=== PATIENT | male | born 1980 | race Caucasian/White ===

== ENCOUNTER 2016-11-21 12:51 | Emergency (ER) | payer BC ==
[~2016-11-21] VITALS: Ht 172.7 cm; Wt 67.3 kg
[~2016-11-21 12:51] MED LIST: BACTRIM DS 8001 TAB PO; CLEOCIN HCL300 MG PO; DOXYCYCLINE 10100 MG PO; NO HOME MEDICATIONS; NORCO 325 MG-101 TAB PO; NORCO 325 MG-51 TAB PO; PERCOCET 325 MG1 TA2 PO
[2016-11-21 12:52] VITALS: BP 113/73; PULSE 85; TEMP 98.4
== END 2016-11-21 14:16 | disposition home or self-care (01) ==
LOC: COL.ER 12:51
DX: S09.8XXA Other specified injuries of head, initial encounter (principal); S00.81XA Abrasion of other part of head, initial encounter; S63.501A Unspecified sprain of right wrist, initial encounter; W22.8XXA Striking against or struck by other objects, initial encounter; W19.XXXA Unspecified fall, initial encounter; Z72.89 Other problems related to lifestyle

== ENCOUNTER → 2020-06-03 | Outpatient (CLI) | payer OTHER | LOC: COL.RAD 15:15 | DX: S22.081D Stable burst fracture of T11-T12 vertebra, subsequent encounter for fracture with routine healing (principal); S32.001D Stable burst fracture of unspecified lumbar vertebra, subsequent encounter for fracture with routine healing; G95.20 Unspecified cord compression ==